=== PATIENT | female | born 1995 | race Caucasian/White ===

== ENCOUNTER 2016-09-22 17:03 | Emergency (ER) | payer MEDICAID, OTHER ==
[~2016-09-22] VITALS: Ht 165.1 cm; Wt 61.5 kg
[2016-09-22 17:18] VITALS: Ht 165.1 cm; Wt 61.5 kg
== END 2016-09-22 19:40 | disposition left against medical advice (07) ==
LOC: E/R 17:03
DX: Z53.21 Procedure and treatment not carried out due to patient leaving prior to being seen by health care provider (principal)